=== PATIENT | female | born 1960 | race Caucasian/White ===

== ENCOUNTER 2017-08-23 14:50 | Observation (INO) ==
[2017-08-23] MEDS ORDERED: methylPREDNISolone 125 MG/2 ML VIAL IVP ONE (15:27)
[2017-08-23] MEDS ORDERED: Ipratropium/Albuterol Neb 3 ML IH ONE (15:27)
--- NOTE | 2017-08-23 16:08 | Emergency Department Note ---
Disposition Clinical Impression: COPD exacerbation, Hypoxia Disposition: Admitted As Inpatient Time of Disposition: 23:18 SOB HPI - General Chief Complaint: ED Shortness of Breath/Dyspnea Stated Complaint: Flu like symptoms Time Seen by Provider: 08/23/17 15:01 Source: patient, family Limitations: no limitations Nursing Notes Reviewed: Yes Vital Signs Reviewed: Yes - History of Present Illness 57-year-old female complains of shortness of breath, cough and generalized weakness that has been worsening over the past week. Patient states she was recently treated for pneumonia 2 months ago. And was placed on azithromycin by her PCP. Patient states since then she has not had any follow-up but states she did not seem to be getting better. She denies any chest pain. Has a history of chronic smoking one pack a day for the past 20 years - Related Data Home Medications Medication Instructions Recorded Confirmed ALPRAZolam [Xanax 1 MG Tablet] 1 mg PO QID PRN 08/23/17 08/23/17 Albuterol Sulfate [Ventolin Hfa] 2 puff IH Q4H PRN 08/23/17 08/23/17 HYDROcodone/Acet 10/325 mg [[place] 1 tab PO TID PRN 08/23/17 08/23/17 10-325 mg] Paroxetine [Paxil] 30 mg PO DAILY 08/23/17 08/23/17 Previous Rx's Medication Instructions Recorded Ipratropium/Albuterol Neb [Duoneb] 3 ml IH Q6HR PRN #10 inhsol 08/25/17 levoFLOXacin [Levaquin] 500 mg PO DAILY #3 tablet 08/25/17 predniSONE [PredniSONE] See Taper PO TAPER #30 tablet 08/25/17 Allergies Allergy/AdvReac Type Severity Reaction Status Date / Time No Known Allergies Allergy Verified 08/23/17 14:52 All systems ED: reviewed and negative except as stated. Review of Systems: As Per HPI Constitutional: Reports: weakness. Denies: fever, chills Eyes: Denies: vision change ENT ED: Reports: congestion Cardiovascular: Denies: chest pain, palpitations Respiratory: Reports: cough, dyspnea, wheezes Gastrointestinal: Denies: abdominal pain, nausea, vomiting, diarrhea Psychiatric: Reports: auditory hallucinations Past Medical History - Past Medical History Attestation: Yes The following information was validated with the patient. 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 OBSERVER history - Social History Smoking Status: Current every day smoker Smokeless Tobacco Status: No Alcohol use: Reports: none Drug use: Reports: none Physical Exam Vital Signs Temperature 99.2 F 08/23/17 14:52 Pulse Rate 97 08/23/17 14:52 Respiratory Rate 24 08/23/17 14:52 Blood Pressure 137/69 08/23/17 14:52 O2 Sat by Pulse Oximetry 93 08/23/17 14:52 Temperature 97.4 F L 08/23/17 20:58 Pulse Rate 101 08/23/17 20:58 Respiratory Rate 22 08/23/17 20:58 Blood Pressure 114/67 08/23/17 20:58 O2 Sat by Pulse Oximetry 93 08/23/17 20:58 Oxygen Delivery Oxygen Delivery Nasal Cannula CONSTITUTIONAL: Alert and oriented X3, patient appears poorly nourished, very thin but not cachectic. Patient is in acute distress, but tolerating O2 via nasal cannula and maintaining her airway. Patient has an increased rate of breathing and has conversational dyspnea. Patient also has a dry sounding cough , patient's O2 saturation 93% on 2 L via nasal cannula. HEAD: Normocephalic; atraumatic. EYES: PERRL, no scleral icterus. NOSE: The nose is normal in appearance without rhinorrhea RESP: Normal chest excursion with respiration; patient has bilateral wheezes and rhonchi both lung mendez worse in the lower lung mendez. Patient has bibasilar rales. CARD: Regular rhythm, without murmurs, rub or gallop ABD: Non-distended; non-tender, soft,without rigidity, rebound or guarding SKIN: Normal for age and race; warm and dry; no apparent lesions - General Limitations: no limitations General appearance: alert Course Vital Signs Temperature 99.2 F 08/23/17 14:52 Pulse Rate 97 08/23/17 14:52 Respiratory Rate 24 08/23/17 14:52 Blood Pressure 137/69 08/23/17 14:52 O2 Sat by Pulse Oximetry 93 08/23/17 14:52 Temperature 97.8 F 08/25/17 07:56 Pulse Rate 94 08/25/17 07:56 Respiratory Rate 18 08/25/17 07:56 Blood Pressure 152/97 08/25/17 07:56 O2 Sat by Pulse Oximetry 96 08/25/17 07:56 Oxygen Delivery Oxygen Delivery Nasal Cannula Shortness of Breath/Dyspnea - [facility] Narrative Medical decision making narrative: Patient here for a COPD exacerbation with dry cough for the past week. Patient still smokes one pack per day. Chest x-ray, EKG, CBC BMP ordered to assess for possible pneumonia and/or electrolyte abnormalities. Patient's labs were clinically unremarkable. Patient's chest x-ray showed no acute abnormalities, no pneumonia, no pneumothorax, or pleural effusion. Patient is given duo nebs 3 which helped the wheezing dramatically. On reevaluation patient still had some wheezing in her lower lung mendez. Lung mendez overall were improved but he still sounded tight. I ordered albuterol inhaler 3 to help with the persistent wheezing, which did help but patient was still unable to maintain normal O2 sats saturations without O2 supplementation. Once patient was taken off oxygen her O2 sats rapidly dropped below 90 and patient is placed back on oxygen supplementation at 2 L. Current plan is for patient to be admitted for continued treatment and evaluation until her COPD exacerbation has subsided. Patient understands and agrees decision for admission. VBG was ordered after patient failed to return to baseline. Results pending, but patient clinically COPD exacerbation with hypoxia and failure to return to baseline without oxygen supplementation. Patient is accepted for admission by Quincy Rangel the hospitalist in stable condition. - Lab Data Lab results reviewed: Yes I reviewed the patient's lab results. Lab results narrative: Short CBC 08/23/17 Range/Units 16:05 WBC 8.6 (4.3-11.1) K/mcL Hgb 15.0 (11.5-15.4) g/dL Hct 44.4 (35.3-44.9) % Plt Count 195 (140-400) K/mcL Neutrophils # 4.4 (1.6-8.9) K/mcL BMP 08/23/17 Range/Units 16:05 Sodium 138 (136-145) mEq/L Potassium 3.5 (3.5-5.1) mEq/L Chloride 104 (98-107) mEq/L Carbon Dioxide 28 (23-29) mEq/L BUN 6 (6-20) mg/dL Creatinine 0.45 L (0.60-1.20) mg/dL Glucose 103 (70-105) mg/dL Calcium 8.9 (8.6-10.3) mg/dL Result diagrams: 08/25/17 06:12 08/25/17 06:12 - Radiology Data Radiology results reviewed: Yes I reviewed the patient's radiology results. Chest X-Ray 08/23/17 15:27 IMPRESSION: No acute process. D/ / 08/23/2017 16:00:44 Igor Ruano MD / emir Interpreting Provider: Igor Ruano MD - EKG Data EKG attestation: Yes I reviewed and interpreted this EKG. EKG results narrative: EKG taken at 1400 2018 at 1553 hrs. shows a sinus rhythm at a rate of 98 bpm with no acute ST elevations or depressions in leads, no QRS widening or QT prolongation. No previous EKG for comparison Attestation Statement - Attestation Attestation: I examined this patient and my medical decision-making was reviewed with the Resident Physician. I agree with the documented findings, disposition and treatment plan as described.
[2017-08-23 16:18] LABS: Basophils % 0.5 %; Eosinophils # 0.2 K/mcL (0.0-0.6); Eosinophils % 2.3 %; Hematocrit 44.4 % (35.3-44.9); Immature Granulocytes % 0.2 % (0-4); Lymphocytes # 3.4 K/mcL (0.6-4.6); Lymphocytes % 39.4 %; Mean Corpuscular HGB Conc 33.8 g/dL (31.6-35.5); Mean Corpuscular Hemoglobin 31.4 pg (28.0-33.3); Mean Corpuscular Volume 92.9 fL (83.0-100.0); Mean Platelet Volume 9.9 fL (9.4-12.4); Monocytes # 0.5 K/mcL (0.0-1.3); Monocytes % 6.3 %; Neutrophils # 4.4 K/mcL (1.6-8.9); Platelet Count 195 K/mcL (140-400); Red Blood Count 4.78 M/mcL (3.82-4.97); Segmented Neutrophils % 51.3 %
[2017-08-23 16:29] LABS: Calcium 8.9 mg/dL (8.6-10.3); Carbon Dioxide 28 mEq/L (23-29); Chloride 104 mEq/L (98-107); Potassium 3.5 mEq/L (3.5-5.1); Sodium 138 mEq/L (136-145)
[2017-08-23 16:35] LABS: BUN/Creatinine Ratio 13 (6-26); Blood Urea Nitrogen 6 mg/dL (6-20); Glucose 103 mg/dL (70-105); Osmolality,Calculated 284 (280-300); eGFR For African Americans > 60 (> 60); eGFR For Non-African Americans > 60 (> 60)
[2017-08-23 16:43] LABS: Platelet Estimate Normal (Normal)
[2017-08-23] MEDS ORDERED: Albuterol 2.5 MG/3 ML NEBULIZER IH ONE (18:29)
[2017-08-23] MEDS ORDERED: Albuterol 2.5 MG/3 ML NEBULIZER IH SCH (18:30)
[2017-08-23 19:10] LABS: VBG HCO3 28 mEq/L (21-27); VBG PCO2 46 mmHg (41-51); VBG PH 7.39 pH Units (7.32-7.42); VBG PO2 156 mmHg (25-50)
[2017-08-23] MEDS ORDERED: *HR* HYDROcodone/Acet 10/325 mg TABLET PO PRN (22:35)
[2017-08-23] MEDS ORDERED: ALPRAZolam 1 MG TABLET PO PRN (22:37)
[2017-08-23] MEDS ORDERED: Naloxone 0.4 MG/ML INJ IVP PRN (23:29)
--- NOTE | 2017-08-23 23:47 | Internal Med History&Physical ---
Date of Encounter: 08/23/17 Time of Encounter: 23:42 Assessment and Plan (1) COPD exacerbation Current visit: Yes Status: Acute 57/female Known to have a COPD. Active smoker: Smokes one to 2 pack every day. Admitted with worsening shortness of breath/cough with expectoration. On examination: Patient is using accessory muscles of respiration. Patient has a polyphonic rhonchi/wheezes present. No intercostal retraction noted. Assessment: Exacerbation of COPD likely secondary to infective etiology. Plan: Admit as observation. Close monitoring of the respiratory disturbances. Intravenous levofloxacin once a day. Intravenous Solu-Medrol 40 mg 3 times a day. The bronchodilators every 4 hours. We will repeat labs tomorrow morning. Of note I have examined this patient in 3B 54. Patient's family was at bedside. All the questions answered. (2) Smoker Current visit: Yes Status: Acute Patient is every day smoker. She smokes around one to 2 pack every day. Had a long conversation with patient regarding smoking cessation. Patient claims that she will think over it and will let the team now (3) Anxiety Current visit: Yes Status: Acute Patient is known to have an anxiety and we will resume home medication (4) Cachexia Current visit: Yes Status: Acute Noted that patient's BMI is 17. Patient claims that she lost weight recently which was unintentional. Patient might need a workup for basic screening/age appropriate to rule out underlying malignancy. This can be done as inpatient/outpatient. (5) DVT prophylaxis Current visit: Yes Status: Acute Heparin Medical decision making: This patient has a moderate to severe risk of worsening in spite of being on appropriate medication due to the underlying chronic comorbid conditions. Internal Medicine - H&P: HPI Chief complaint: Shortness of breath Admitted From: Emergency Dept Plans for Post Hospital Care: Home History of present illness: PCP: Dr Bonifacio Bravo Brief PMH: COPD, Anxiety, Depression, Chronic smoker HPI: Patient has persistent ongoing worsening cough along with the shortness of breath for past 2 weeks. Noted initially that patient's color of the sputum was clear but in last 4-5 days it is greenish in color. Patient has worsening shortness of breath in last 72 hours. Noted that patient was not able to walk even 10-15 steps at home and that was the reason the brought her to emergency room for further evaluation. Patient denies chest pain, nausea, vomiting, abdominal pain, dizziness and diarrhea. Workup in the emergency room: Patient was evaluated in the emergency room. Basic labs were drawn. X-ray chest did not show any acute process. Reason for admission: COPD exacerbation which needs intravenous antibiotics/ steroids and inhaled bronchodilator with close observation Family history: Noncontributory Past Med Surg Social Fam HX - Past Medical History Medical history: asthma Psychiatric history: anxiety, depression - Social History Smoking Status: Current every day smoker Packs per day: 1.5 Smokeless Tobacco Status: No Alcohol use: none Drug use: none - Family History Mother Living Status: Hx Family Cardiac Disorders: Yes Father Living Status: Hx Family Cardiac Disorders: Yes Internal Medicine - H&P: Meds ALPRAZolam [Xanax 1 MG Tablet] 1 mg PO QID PRN 08/23/17 [History] Albuterol Sulfate [Ventolin Hfa] 2 puff IH Q4H PRN 08/23/17 [History] HYDROcodone/Acet 10/325 mg [[place] 10-325 mg] 1 tab PO TID PRN 08/23/17 [History] Paroxetine [Paxil] 30 mg PO DAILY 08/23/17 [History] 3 Allergy/AdvReac Type Severity Reaction Status Date / Time No Known Allergies Allergy Verified 08/23/17 14:52 All Systems PM: A 10-system review of systems was performed and is negative for pertinent findings except as documented above in the HPI. - Constitutional Constitutional: no chills, no fever(s), no night sweats - EENT Eyes: no change in vision, no discharge, no pain, no photophobia Ears: no ear discharge, no ear pain, no tinnitus Nose, mouth and throat: no dysphagia, no nasal discharge, no neck pain, no sore throat - Cardiovascular Cardiovascular ROS IM: no chest pain, no diaphoresis, no dyspnea, no lightheadedness, no palpitations, no syncope - Respiratory Respiratory: cough, dyspnea, wheezing, pain on inspiration, excessive phlegm production, change in phlegm color, pain with cough - Gastrointestinal Gastrointestinal: no abdominal pain, no diarrhea, no hematemesis, no hematochezia, no melena, no nausea, no vomiting - Genitourinary Genitourinary: no change in urinary stream, no dysuria, no flank pain, no hematuria - Musculoskeletal Musculoskeletal ROS IM: no numbness, no tingling - Integumentary Integumentary IM: no rash, no unusual bruising - Neurological Neurological ROS: no confusion, no convulsions, no focal weakness, no numbness, no tingling, no tremor(s) - Hematologic/Lymphatic Hematologic/Lymphatic: no easy bruising - Constitutional Vitals: Temp Pulse Resp BP Pulse Ox 97.4 F L 101 22 114/67 93 08/23/17 20:58 08/23/17 20:58 08/23/17 20:58 08/23/17 20:58 08/23/17 20:58 General appearance: Present: A&O X 3, pleasant, no acute distress, answers questions appropriately - Head Head exam: Present: atraumatic, normocephalic - Eye Eye exam: Present: PERRL, conjuntiva pink, sclera anicteric Pupils: Present: PERRL - Neck Neck exam general surgery: Present: supple, trachea midline. Absent: lymphadenopathy - Respiratory Respiratory exam: Present: CTAB. Absent: accessory muscle use, rales, rhonchi, wheezes - Cardiovascular Cardiovascular exam: Present: RRR, +S1, +S2. Absent: diastolic murmur, gallop, rubs, systolic murmur - GI/Abdominal GI/Abdominal exam: Present: normal bowel sounds, soft, no peritoneal signs. Absent: distended, tenderness - Extremities Exam Extremities exam: Present: warm, radial pulses palpable and symmetrical. Absent : calf tenderness, cyanotic, pedal edema - Neurological Exam Neurological exam: Present: CN II-XII intact, oriented X3, no focal deficits. Absent: pronater drift, facial droop, speech deficit - Skin Skin exam: Present: dry, intact Internal Med - H&P Results - Labs CBC & Chem 7: 08/23/17 16:05 08/23/17 16:05
[2017-08-24] MEDS: Levofloxacin 750 MG/150 ML 750 MG/150 ML BAG IVPB SCH ×2 (00:40→08:56)
[2017-08-24] MEDS: MethylPREDNISolone 40 MG/ML VIAL IVP SCH ×4 (00:40→21:39)
[2017-08-24] MEDS: Ipratropium/Albuterol Neb 3 ML IH SCH ×7 (00:46→23:24)
[2017-08-24 02:28] LABS: Basophils % 0.2 %; Hematocrit 38.5 % (35.3-44.9); Immature Granulocytes % 0.5 % (0-4); Lymphocytes # 0.7 K/mcL (0.6-4.6); Lymphocytes % 16.2 %; Mean Corpuscular Hemoglobin 30.5 pg (28.0-33.3); Mean Corpuscular Volume 92.5 fL (83.0-100.0); Mean Platelet Volume 10.1 fL (9.4-12.4); Monocytes # 0.1 K/mcL (0.0-1.3); Monocytes % 1.6 %; Neutrophils # 3.5 K/mcL (1.6-8.9); Platelet Count 207 K/mcL (140-400); Red Blood Count 4.16 M/mcL (3.82-4.97); Segmented Neutrophils % 81.5 %
[2017-08-24 02:32] LABS: Prothrombin Time 11.1 Seconds (9.4-12.1)
[2017-08-24 02:34] LABS: Activated Partial Thrombo Time 28.2 Seconds (26.0-36.0)
[2017-08-24 02:47] LABS: Alanine Aminotransferase 10 Units/L (7-52); Albumin 3.5 g/dL (3.5-5.7); Albumin/Globulin Ratio 1.1 (1.1-2.2); Alkaline Phosphatase 61 Units/L (34-104); Aspartate Amino Transferase 17 Units/L (13-39); BUN/Creatinine Ratio 21 (6-26); Bilirubin,Total 0.2 mg/dL (0.3-1.0); Blood Urea Nitrogen 9 mg/dL (6-20); Calcium 8.5 mg/dL (8.6-10.3); Carbon Dioxide 28 mEq/L (23-29); Chloride 104 mEq/L (98-107); Chol/HDL Ratio 3.8 (0-4.9); Cholesterol 128 mg/dL (< 200); Globulin 3.2 g/dL (2.4-3.5); Glucose 179 mg/dL (70-105); HDL Cholesterol 34 mg/dL (40-59); LDL Cholesterol,Calculated 84 mg/dL (0-99); Magnesium 1.6 mg/dL (1.6-2.6); Osmolality,Calculated 295 (280-300); Phosphorous 2.7 mg/dL (2.7-4.5); Potassium 2.8 mEq/L (3.5-5.1); Sodium 141 mEq/L (136-145); Total Protein 6.7 g/dL (6.4-8.9); Triglycerides 48 mg/dL (< 150); eGFR For African Americans > 60 (> 60); eGFR For Non-African Americans > 60 (> 60)
[2017-08-24 02:57] LABS: Hemoglobin 12.7 g/dL (11.5-15.4)
[2017-08-24 03:56] LABS: Platelet Estimate Normal (Normal); Reactive Lymphocytes Present (Not Present)
[2017-08-24 03:57] LABS: Anisocytosis 1+ (Not Present)
[2017-08-24] MEDS: *HR* Heparin 5,000 UNIT/ML VIAL SQ SCH ×2 (05:52→17:24)
[2017-08-24] MEDS ORDERED: GuaiFENesin/Codeine Oral Soln 5 ML UDC PO PRN (10:28)
--- NOTE | 2017-08-24 10:28 | Internal Med Progress Note ---
Date of Encounter: 08/24/17 Time of Encounter: 10:26 - Assessment and plan (1) Acute respiratory failure with hypoxia Current Visit: Yes Status: Acute Assessment and plan: Likely secondary to an acute exacerbation of COPD. We will continue with IV steroids were 20 and then down to every 12 hours as she is not having wheezes. Continue with scheduled. Wean down oxygen as tolerated. Currently on room air. We will add Robitussin for symptomatic relief. Continue Levaquin (2) Smoker Current Visit: Yes Status: Acute Assessment and plan: Continue patch (3) Cachexia Current Visit: Yes Status: Acute Assessment and plan: Consult dietary (4) DVT prophylaxis Current Visit: Yes Status: Acute Assessment and plan: Heparin subcutaneous - Subjective Interval history: Patient was seen and examined. No acute events. Admitted with a COPD exacerbation. This morning she is on room air however she still having significant cough. Denies any fever. No chest pain. - Constitutional Vitals: Temp Pulse Resp BP Pulse Ox 97.4 F L 107 18 114/64 93 08/24/17 07:06 08/24/17 07:06 08/24/17 07:06 08/24/17 07:06 08/24/17 07:06 General appearance: Present: A&O X 3, pleasant, no acute distress, answers questions appropriately Exam: GEN: NAD, cachectic CVS: RRR. S1, S2, No m/r/g RESP: Diminished with coarse breath sounds throughout. No obvious wheezes ABD: Soft, NT, ND, +BS EXT: No edema. 2+ DP. No rashes NEURO: Nonfocal Internal Medicine: Result - Labs CBC & Chem 7: 08/24/17 00:37 08/24/17 00:37 Labs: Short CBC 08/24/17 Range/Units 00:37 WBC 4.3 (4.3-11.1) K/mcL Hgb 12.7 D (11.5-15.4) g/dL Hct 38.5 (35.3-44.9) % Plt Count 207 (140-400) K/mcL Neutrophils # 3.5 (1.6-8.9) K/mcL BMP 08/24/17 00:37 Sodium 141 Potassium 2.8 L Chloride 104 Carbon Dioxide 28 BUN 9 Creatinine 0.43 L Glucose 179 H Calcium 8.5 L Cardiac Enzymes 08/24/17 08/24/17 Range/Units 00:37 06:17 Troponin I < 0.03 < 0.03 (< 0.04) ng/mL Liver Function 08/24/17 Range/Units 00:37 Total Bilirubin 0.2 L (0.3-1.0) mg/dL AST 17 (13-39) Units/L ALT 10 (7-52) Units/L Alkaline Phosphatase 61 (34-104) Units/L Albumin 3.5 (3.5-5.7) g/dL - ABG Interpretation ABG results: PT/INR, D-dimer PT 11.1 Seconds (9.4-12.1) 08/24/17 00:37 Consult Discharge Plan - Plan Referrals: Colopy,Bonifacio Peter DO [Primary Care Provider] -
[2017-08-24] MEDS: Nicotine 21 MG PATCH.TD24 TD SCH (11:05)
[2017-08-24] MEDS: ALPRAZolam 1 MG TABLET PO PRN ×2 (11:05→21:39)
[2017-08-24] MEDS ORDERED: Magnesium Oxide 400 MG TABLET PO ONE (13:00)
[2017-08-24] MEDS ORDERED: Potassium Chloride 40 MEQ, Lidocaine 1% 2 ML in D5% in Water 500 ML IVPB ONE (13:01)
[2017-08-25] MEDS: Ipratropium/Albuterol Neb 3 ML IH SCH ×2 (04:13→07:34)
[2017-08-25] MEDS: *HR* Heparin 5,000 UNIT/ML VIAL SQ SCH (05:36)
[2017-08-25 06:38] LABS: Hematocrit 37.4 % (35.3-44.9); Hemoglobin 12.5 g/dL (11.5-15.4); Mean Corpuscular HGB Conc 33.4 g/dL (31.6-35.5); Red Cell Distribution Width 12.4 % (11.5-14.5)
[2017-08-25 06:39] LABS: Basophils % 0.2 %; Immature Granulocytes % 1.5 % (0-4); Lymphocytes # 1.3 K/mcL (0.6-4.6); Mean Corpuscular Hemoglobin 31.1 pg (28.0-33.3); Mean Platelet Volume 9.9 fL (9.4-12.4); Monocytes # 0.7 K/mcL (0.0-1.3); Monocytes % 2.8 %; Platelet Count 262 K/mcL (140-400); Red Blood Count 4.02 M/mcL (3.82-4.97); Segmented Neutrophils % 90.5 %
[2017-08-25 06:41] LABS: Basophils # 0.1 K/mcL (0.0-0.2); Neutrophils # 22.7 K/mcL (1.6-8.9)
[2017-08-25 06:56] LABS: BUN/Creatinine Ratio 24 (6-26); Blood Urea Nitrogen 10 mg/dL (6-20); Calcium 8.9 mg/dL (8.6-10.3); Carbon Dioxide 28 mEq/L (23-29); Chloride 106 mEq/L (98-107); Glucose 156 mg/dL (70-105); Osmolality,Calculated 290 (280-300); Potassium 4.4 mEq/L (3.5-5.1); Sodium 139 mEq/L (136-145); eGFR For African Americans > 60 (> 60); eGFR For Non-African Americans > 60 (> 60)
[2017-08-25 07:57] VITALS: BP 152/97
[2017-08-25] MEDS: Nicotine 21 MG PATCH.TD24 TD SCH (08:10)
[2017-08-25] MEDS: Levofloxacin 750 MG/150 ML 750 MG/150 ML BAG IVPB SCH (08:10)
[2017-08-25 09:21] LABS: Platelet Estimate Normal (Normal)
--- NOTE | 2017-08-25 09:39 | Discharge Summary ---
Date of Encounter: 08/25/17 Time of Encounter: 09:37 - Discharge Diagnosis (1) Acute respiratory failure with hypoxia Priority: Primary Status: Acute (2) Smoker Priority: Secondary Status: Acute (3) Cachexia Priority: Secondary Status: Acute (4) Protein-calorie malnutrition, moderate Priority: Primary Status: Acute - Discharge Medications Prescriptions: Ipratropium/Albuterol Neb [Duoneb] 3 ml IH Q6HR PRN #10 inhsol PRN Reason: Shortness Of Breath levoFLOXacin [Levaquin] 500 mg PO DAILY #3 tablet predniSONE [PredniSONE] See Taper PO TAPER #30 tablet Home Medications: ALPRAZolam [Xanax 1 MG Tablet] 1 mg PO QID PRN 08/23/17 [History] Albuterol Sulfate [Ventolin Hfa] 2 puff IH Q4H PRN 08/23/17 [History] HYDROcodone/Acet 10/325 mg [[place] 10-325 mg] 1 tab PO TID PRN 08/23/17 [History] Paroxetine [Paxil] 30 mg PO DAILY 08/23/17 [History] Ipratropium/Albuterol Neb [Duoneb] 3 ml IH Q6HR PRN #10 inhsol 08/25/17 [Rx] levoFLOXacin [Levaquin] 500 mg PO DAILY #3 tablet 08/25/17 [Rx] predniSONE [PredniSONE] See Taper PO TAPER #30 tablet 08/25/17 [Rx] Allergies/Adverse Reactions: 3 Allergy/AdvReac Type Severity Reaction Status Date / Time No Known Allergies Allergy Verified 08/23/17 14:52 Procedures/tests Complete & Pending: Procedures Performed prior 72 hours Category Date Time Status EKG [ECG 12 lead ECG] [ECG] Stat Y 08/24/17 12:09 Completed Date of admission: 08/23/17 19:54 Primary care physician: Bonifacio Peter Colopy Consults: 08/24/17 10:26 Consult to Physical Therapy [CONS] Routine Comment: Evaluate, develop and implement POC Reason for Consult: PT eval 08/24/17 10:30 consult to clinical cytopathologist [Consult to Nutrition] [CONS] Routine Comment: Consulting Provider: NUTRITION Reason for Dietary Consult: PO Supplementation - Patient Status Disposition: Home, Self-Care Overall status at discharge: patient is progressing back to baseline - Discharge Instructions Instructions: How to Stop Smoking (DC), Chronic Obstructive Pulmonary Disease ( DC), Hypoxia (GEN) Follow Up With: Bonifacio Bravo DO [Primary Care Provider] - - Diet and Activity Activity: increase activity as tolerated Diet: regular diet Hospital course: Ms. Frank is a 57 year old female with history of COPD, Anxiety, Depression, Chronic smoker who has had persistent ongoing worsening cough along with the shortness of breath for past 2 weeks. In the ER, basic labs were drawn which were unremarkable. X-ray chest did not show any acute process. He was admitted for COPD exacerbation and was put on IV steroids, bronchodilators. Did well over the next couple days. We have discharged the patient on a prednisone taper, Levaquin, and we set her up with a nebulizer at home. Patient was stable for discharge on 08/25/2017 - Time Spent with Patient Total time spent providing and/or coordinating discharge services: Greater than 30 minutes - Constitutional Vitals: Temp Pulse Resp BP Pulse Ox 97.8 F 94 18 152/97 96 08/25/17 07:56 08/25/17 07:56 08/25/17 07:56 08/25/17 07:56 08/25/17 07:56 General appearance: Present: A&O X 3, pleasant, no acute distress, answers questions appropriately Exam: GEN: NAD, cachectic CVS: RRR. S1, S2, No m/r/g RESP: Diminished with coarse breath sounds throughout. No obvious wheezes ABD: Soft, NT, ND, +BS EXT: No edema. 2+ DP. No rashes NEURO: Nonfocal
[2017-08-25] MEDS: ALPRAZolam 1 MG TABLET PO PRN (10:18)
--- NOTE | 2017-08-27 11:30 | Electrocardiograph Report ---
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
--- NOTE | 2017-08-30 01:56 | Electrocardiograph Report ---
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
== END 2017-08-25 10:32 | disposition home or self-care (01) ==
LOC: EMEROO 14:50 → 3BNU 14:50
PROVIDERS: ADMIT Internal Medicine; ATTEND Registered Nurse

== ENCOUNTER 2020-10-06 10:37 | Observation (INO) ==
[2020-10-06] MEDS ORDERED: Ipratropium/Albuterol Neb 3 ML IH ONE ×2 (11:04→12:07)
[2020-10-06] MEDS ORDERED: methylPREDNISolone 125 MG/2 ML VIAL IVP ONE (11:04)
[2020-10-06 11:20] LABS: Basophils # 0.1 K/mcL (0.0-0.2); Eosinophils # 0.6 K/mcL (0.0-0.6); Eosinophils % 8.6 %; Hematocrit 42.7 % (35.3-44.9); Hemoglobin 14.7 g/dL (11.5-15.4); Immature Granulocytes % 0.4 % (0-4); Lymphocytes # 2.5 K/mcL (0.6-4.6); Lymphocytes % 37.9 %; Mean Corpuscular HGB Conc 34.4 g/dL (31.6-35.5); Mean Corpuscular Hemoglobin 32.7 pg (28.0-33.3); Mean Corpuscular Volume 94.9 fL (83.0-100.0); Mean Platelet Volume 9.6 fL (9.4-12.4); Monocytes # 0.7 K/mcL (0.0-1.3); Monocytes % 9.7 %; Neutrophils # 2.8 K/mcL (1.6-8.9); Platelet Count 259 K/mcL (140-400); Red Cell Distribution Width 11.5 % (11.5-14.5); Segmented Neutrophils % 42.4 %; White Blood Count 6.7 K/mcL (4.3-11.1)
[2020-10-06 11:41] LABS: BUN/Creatinine Ratio 13 (6-26); Blood Urea Nitrogen 8 mg/dL (6-20); Calcium 8.8 mg/dL (8.6-10.3); Carbon Dioxide 29 mEq/L (23-29); Chloride 106 mEq/L (98-107); Glucose 81 mg/dL (70-105); Osmolality,Calculated 289 (280-300); Potassium 3.8 mEq/L (3.5-5.1); Sodium 141 mEq/L (136-145); eGFR For African Americans > 60 (> 60); eGFR For Non-African Americans > 60 (> 60)
[2020-10-06 11:42] LABS: Troponin I < 0.03 ng/mL (< 0.04)
[2020-10-06 12:42] LABS: Adenovirus Not Detected (Not Detect); Bordetella Pertussis Not Detected (Not Detect); Chlamydophila pneumoniae Not Detected (Not Detect); Coronavirus 229E Not Detected (Not Detect); Coronavirus HKU1 Not Detected (Not Detect); Coronavirus NL63 Not Detected (Not Detect); Coronavirus OC43 Not Detected (Not Detect); Human Metapneumovirus Not Detected (Not Detect); Human Rhinovirus/Enterovirus Not Detected (Not Detect); Influenza A Subtype 2009 H1 Not Detected (Not Detect); Influenza B Not Detected (Not Detect); Mycoplasma pneumoniae Not Detected (Not Detect); Parainfluenza Virus 1 Not Detected (Not Detect); Parainfluenza Virus 2 Not Detected (Not Detect); Parainfluenza Virus 3 Not Detected (Not Detect); Parainfluenza Virus 4 Not Detected (Not Detect); Respiratory Syncytial Virus Not Detected (Not Detect); SARS-CoV-2 Not Detected (Not Detect)
[2020-10-06] MEDS ORDERED: Naloxone 0.4 MG/ML INJ IVP PRN (13:39)
[2020-10-06] MEDS ORDERED: Ondansetron 4 MG/2 ML VIAL IVP PRN (13:39)
[2020-10-06] MEDS ORDERED: Azithromycin 500 MG in D5% in Water 250 ML IVPB SCH (14:00)
[2020-10-06] MEDS: Ipratropium/Albuterol Neb 3 ML IH SCH ×2 (15:23→21:53)
[2020-10-06 16:19] LABS: ABG Base Excess -1 mEq/L (-2 to 3); ABG HCO3 25 mEq/L (21-27); ABG Oxygen Saturation 93 % (95-98); ABG PCO2 44 mmHg (35-45); ABG PH 7.36 pH Units (7.32-7.45); ABG PO2 70 mmHg (85-104); ABG TCO2 26 mEq/L (20-26)
[2020-10-06] MEDS: MethylPREDNISolone 40 MG/ML VIAL IVP SCH ×2 (16:50→22:13)
[2020-10-06] MEDS: *HR* Heparin 5,000 UNIT/ML VIAL SQ SCH (16:50)
[2020-10-06] MEDS: ALPRAZolam 1 MG TABLET PO PRN (22:12)
[2020-10-06] MEDS: *HR* HYDROcodone/Acet 10/325 mg TABLET PO PRN (22:12)
[2020-10-07 02:09] LABS: Basophils % 0.1 %; Hematocrit 38.5 % (35.3-44.9); Hemoglobin 13.2 g/dL (11.5-15.4); Immature Granulocytes % 0.3 % (0-4); Lymphocytes # 1.1 K/mcL (0.6-4.6); Lymphocytes % 12.1 %; Mean Corpuscular HGB Conc 34.3 g/dL (31.6-35.5); Mean Corpuscular Hemoglobin 32.4 pg (28.0-33.3); Mean Corpuscular Volume 94.4 fL (83.0-100.0); Mean Platelet Volume 9.9 fL (9.4-12.4); Monocytes # 0.1 K/mcL (0.0-1.3); Monocytes % 1.3 %; Platelet Count 243 K/mcL (140-400); Red Blood Count 4.08 M/mcL (3.82-4.97); Red Cell Distribution Width 11.2 % (11.5-14.5); Segmented Neutrophils % 86.2 %; White Blood Count 9.2 K/mcL (4.3-11.1)
[2020-10-07 02:29] LABS: Alanine Aminotransferase 14 Units/L (7-52); Albumin 3.8 g/dL (3.5-5.7); Albumin/Globulin Ratio 1.4 (1.1-2.2); Alkaline Phosphatase 65 Units/L (34-104); Aspartate Amino Transferase 17 Units/L (13-39); BUN/Creatinine Ratio 24 (6-26); Bilirubin,Total 0.2 mg/dL (0.3-1.0); Blood Urea Nitrogen 15 mg/dL (6-20); Carbon Dioxide 26 mEq/L (23-29); Chloride 104 mEq/L (98-107); Globulin 2.8 g/dL (2.4-3.5); Glucose 181 mg/dL (70-105); Osmolality,Calculated 291 (280-300); Potassium 3.4 mEq/L (3.5-5.1); Sodium 138 mEq/L (136-145); Total Protein 6.6 g/dL (6.4-8.9); eGFR For African Americans > 60 (> 60); eGFR For Non-African Americans > 60 (> 60)
[2020-10-07] MEDS: Ipratropium/Albuterol Neb 3 ML IH SCH ×6 (04:18→23:12)
[2020-10-07] MEDS: MethylPREDNISolone 40 MG/ML VIAL IVP SCH (05:10)
[2020-10-07] MEDS: *HR* Heparin 5,000 UNIT/ML VIAL SQ SCH ×2 (05:11→16:13)
[2020-10-07] MEDS: Budesonide/Formoterol 160/4.5 1 PUFF INH IH SCH ×2 (10:00→19:55)
[2020-10-07] MEDS: PARoxetine 30 MG TABLET PO SCH (10:23)
[2020-10-07] MEDS: Nicotine 14 MG PATCH.TD24 TD SCH (10:23)
[2020-10-07] MEDS: Doxycycline 100 MG CAPSULE PO SCH ×2 (13:29→21:08)
[2020-10-07] MEDS ORDERED: MethylPREDNISolone 40 MG/ML VIAL IVP SCH ×2 (16:00→17:00)
[2020-10-07] MEDS: ALPRAZolam 1 MG TABLET PO PRN (16:20)
[2020-10-07] MEDS: *HR* HYDROcodone/Acet 10/325 mg TABLET PO PRN (21:08)
[2020-10-08] MEDS: ALPRAZolam 1 MG TABLET PO PRN (00:12)
[2020-10-08] MEDS: Ipratropium/Albuterol Neb 3 ML IH SCH ×2 (04:11→07:51)
[2020-10-08] MEDS: *HR* Heparin 5,000 UNIT/ML VIAL SQ SCH (05:08)
[2020-10-08 06:24] LABS: BUN/Creatinine Ratio 37 (6-26); Blood Urea Nitrogen 17 mg/dL (6-20); Calcium 9.1 mg/dL (8.6-10.3); Carbon Dioxide 27 mEq/L (23-29); Chloride 105 mEq/L (98-107); Glucose 117 mg/dL (70-105); Magnesium 1.6 mg/dL (1.6-2.6); Osmolality,Calculated 289 (280-300); Potassium 3.8 mEq/L (3.5-5.1); Sodium 138 mEq/L (136-145); eGFR For African Americans > 60 (> 60); eGFR For Non-African Americans > 60 (> 60)
[2020-10-08 06:51] VITALS: BP 91/50
[2020-10-08] MEDS: Budesonide/Formoterol 160/4.5 1 PUFF INH IH SCH (07:51)
[2020-10-08] MEDS: PARoxetine 30 MG TABLET PO SCH (08:01)
[2020-10-08] MEDS: Nicotine 14 MG PATCH.TD24 TD SCH (08:01)
[2020-10-08] MEDS: Doxycycline 100 MG CAPSULE PO SCH (08:01)
[2020-10-08] MEDS ORDERED: predniSONE 20 MG TABLET PO SCH (09:00)
== END 2020-10-08 11:32 | disposition home or self-care (01) ==
LOC: 3BNU 10:37 → EMEROOARM 10:37 → SUATTDRO 13:25 → 3BNU 13:58
PROVIDERS: ADMIT General Practice; ATTEND Internal Medicine